=== PATIENT | female | born 1970 | race African-American/Black ===

== ENCOUNTER 2018-06-12 09:54 | Inpatient (IN) | payer OTHER ==
[2018-06-12 11:37] VITALS: BMI 19.8
--- NOTE | 2018-06-12 12:34 | HP ---
CIWA Score Nausea/Vomitin Muscle Tremors: 3 Anxiety: 3 Agitation: 3 Paroxysmal Sweats: 1-Minimal Palms Moist Orientation: 0-Oriented Tacttile Disturbances: 1-Very Mild Itch/Numbness Auditory Disturbances: 1-Very Mild Visual Disturbances: 0-None Headache: 2-Mild CIWA-Ar Total Score: 16 - Admission Criteria OASAS Guidelines: Admission for Medically Managed Detox: Requires at least one of the followin. CIWA greater than 12 2. Seizures within the past 24 hours 3. Delirium tremens within the past 24 hours 4. Hallucinations within the past 24 hours 5. Acute intervention needed for co occurring medical disorder 6. Acute intervention needed for co occurring psychiatric disorder 7. Severe withdrawal that cannot be handled at a lower level of care (continued vomiting, continued diarrhea, abnormal vital signs) requiring intravenous medication and/or fluids 8. Admission ROS S - [facility] Chief Complaint: i need help to stop drinking lcohol,cocaine,dependence,heroin abused,mmtp 150 mgs/day Allergies/Adverse Reactions: Allergies Allergy/AdvReac Type Severity Reaction Status Date / Time No Known Allergies Allergy Verified 06/12/18 11:19 History of Present Illness: this 47 years old femlae with alcohol and cocaine dependence,heroin abused,mmtp 150 mgs/day,last medicated today, had previous admission in detox and rehab before last treatment in rehab 08/15/15 to 09/04/15 [facility] re[facility] asthma on albuterol inhaler nicotine dependence 1/2 pack/day,would like patch and gum longest period of sobriety 5 years plan to go to rehab after detox - Ebola screening Have you traveled outside of the country in the last 21 days: No Have you had contact with anyone from an Ebola affected area: No Do you have a fever: No - Review of Systems Constitutional: Loss of Appetite, Malaise, Night Sweats, Changes in sleep, Weakness, Unintentional Wgt. Loss EENT: reports: Tearing, Nose Congestion Respiratory: reports: No Symptoms reported, Other (asthma) Cardiac: reports: No Symptoms Reported GI: reports: Diarrhea, Nausea, Abdominal cramping : reports: No Symptoms Reported Musculoskeletal: reports: Back Pain, Muscle Pain Integumentary: reports: Dryness Neuro: reports: Headache, Tremors Endocrine: reports: No Symptoms Reported Hematology: reports: No Symptoms Reported Psychiatric: reports: No Sypmtoms Reported, Judgement Intact, Mood/Affect Appropiate, Orientated x3, Anxious, other (ptsd) Other Systems: Reviewed and Negative Patient History - Patient Medical History Hx Anemia: Yes (no med) Hx Asthma: Yes (on albuterol inhaler) Hx Chronic Obstructive Pulmonary Disease (COPD): Yes Hx Cancer: No Hx Cardiac Disorders: No Hx Congestive Heart Failure: No Hx Hypertension: No Hx Hypercholesterolemia: No Hx Pacemaker: No HX Cerebrovascular Accident: No Hx Seizures: No Hx Dementia: No Hx Diabetes: No Hx Gastrointestinal Disorders: No Hx Liver Disease: No Hx Genitourinary Disorders: No Hx Sexually Transmitted Disorders: No Hx Renal Disease (ESRD): No Hx Thyroid Disease: No Hx Human Immunodeficiency Virus (HIV): No (02/25 negative) Hx Hepatitis C: No (2015 negative) Hx Depression: No Hx Suicide Attempt: No Hx Bipolar Disorder: Yes (gabapentin 300 mg po tid last 4 moths ago) Hx Schizophrenia: No Other Medical History: no suicidal,no homicidal,low back pain,scitica - Patient Surgical History Past Surgical History: Yes Hx Neurologic Surgery: No Hx Cataract Extraction: No Hx Cardiac Surgery: No Hx Lung Surgery: No Hx Breast Surgery: No Hx Breast Biopsy: No Hx Abdominal Surgery: No Hx Appendectomy: No Hx Cholecystectomy: No Hx Genitourinary Surgery: No Hx Section: Yes (1988 1993 2008) Hx Orthopedic Surgery: No Hx Hysterectomy: No Anesthesia Reaction: No - PPD History Previous Implant?: Yes Documented Results: Negative w/o proof Implanted On Prior [facility] Admission?: Yes Date: 06/11/15 Results: 0 MM PPD to be Administered?: Yes - Reproductive History Patient is a Female of Child Bearing Age (11 -55 yrs old): Yes Last Menstrual Period: 01/08/18 Patient : No - Smoking Cessation Smoking history: Current every day smoker Have you smoked in the past 12 months: Yes Aproximately how many cigarettes per day: 10 Hx Chewing Tobacco Use: No Initiated information on smoking cessation: Yes 'Breaking Loose' booklet given: 06/12/18 - Substance & Tx. History Hx Alcohol Use: Yes Hx Substance Use: Yes (cocaine,heroin) Substance Use Type: Alcohol Hx Substance Use Treatment: Yes ([facility] 08/15/15 to 08/25/15) - Substances abused Heroin Substance route: Inhalation Frequency: 3-6 times per week Amount used: 2 BAGS Age of first use: 16 Date of last use: 06/11/18 Alcohol Substance route: Oral Frequency: Daily Amount used: 1 SHOT BOTTLE OF BACARDI 1 pint Age of first use: 15 Date of last use: 06/11/18 Cocaine Substance route: Smoking Frequency: Daily Amount used: 4 BAGS Age of first use: 16 Date of last use: 06/11/18 Family Disease History - Family Disease History Family Disease History: Diabetes: Father (etoh/drugs), Heart Disease: Mother ( etoh/drugs), Other: Father, Mother Admission Physical Exam [facility] - Vital Signs Vital Signs: Vital Signs - 24 hr 06/12/18 06/12/18 11:22 11:45 Temperature 98.5 F 98.5 F Pulse Rate 64 64 Respiratory 20 20 Rate Blood Pressure 117/75 117/75 - Physical General Appearance: Yes: Moderate Distress, Tremorous, Irritable, Sweating, Anxious HEENTM: Yes: Normocephalic, Normal Voice, WAYNE, Pharynx Normal Respiratory: Yes: Lungs Clear, Normal Breath Sounds, No Respiratory Distress Neck: Yes: Within Normal Limits, Supple, Trachea in good position Breast: Yes: Breast Exam Deferred Cardiology: Yes: Within Normal Limits, Regular Rhythm, Regular Rate, S1, S2 Abdominal: Yes: Within Normal Limits, Normal Bowel Sounds, Non Tender, Soft Genitourinary: Yes: Within Normal Limits Back: Yes: Muscle Spasm Musculoskeletal: Yes: Back pain, Muscle Pain Extremities: Yes: Within Normal Limits, Normal Range of Motion, Tremors 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 NML intact, Fully Oriented, Alert, Motor Strength 5/5 Integumentary: Yes: Within Normal Limits, Dry Lymphatic: Yes: Within Normal Limits - Diagnostic (1) Alcohol dependence with uncomplicated withdrawal Current Visit: Yes Status: Acute (2) Cocaine dependence Current Visit: Yes Status: Acute (3) Heroin abuse Current Visit: Yes Status: Acute (4) Asthma Current Visit: No Status: Chronic Qualifiers: Asthma severity: mild intermittent Asthma complication type: uncomplicated (5) Methadone maintenance therapy patient Current Visit: No Status: Chronic (6) PTSD (post-traumatic stress disorder) Current Visit: No Status: Chronic (7) Bipolar disorder Current Visit: No Status: Suspected (8) Weight loss Current Visit: Yes Status: Acute (9) Low back pain with sciatica Current Visit: Yes Status: Acute Cleared for Admission [facility] - Detox or Rehab [facility] Level of Care: Medically Managed Detox Regimen/Protocol: Librium Breathalyzer - Breathalyzer Breathalyzer: 0 Urine Drug Screen - Test Device Lot number: [id number] Expiration date: 01/07/20 - Control Is test valid?: Yes - Results Drug screen NEGATIVE: No Urine drug screen results: LAURA-Cocaine, MET-Methamphetamine, FEN-Fentanyl, MOP- Opiates, MTD-Methadone Inpatient Rehab Admission - Rehab Decision to Admit Inpatient rehab admission?: No
[2018-06-12] MEDS ORDERED: ACETAMINOPHEN 325 MG TABLET (FP) PO PRN ×2 (12:47)
[2018-06-12] MEDS ORDERED: METHOCARBAMOL 500 MG TABLET PO PRN (12:47)
[2018-06-12] MEDS ORDERED: MAG HYDROX/AL HYDROX/SIMETH 30 ML UNIT-DOSE CUP PO PRN (12:47)
[2018-06-12] MEDS ORDERED: MENTHOL/PHENOL 1 EACH UD MM PRN (12:47)
[2018-06-12] MEDS ORDERED: MAGNESIUM HYDROX 2400MG/30ML ORAL SUSPENSION 30 ML CUP PO PRN (12:47)
[2018-06-12] MEDS ORDERED: IBUPROFEN 400 MG TABLET (FP) PO PRN (12:47)
[2018-06-12] MEDS ORDERED: hydrOXYzine PAMOATE 25 MG CAPSULE (FP) PO PRN (12:47)
[2018-06-12] MEDS ORDERED: NICOTINE POLACRILEX 2 MG GUM BUC PRN (12:47)
[2018-06-12] MEDS ORDERED: MAGNESIUM CITRATE 300 ML BOTTLE PO PRN (12:47)
[2018-06-12] MEDS ORDERED: ALBUTEROL SO4 8 GM HFA INHALER IH PRN (12:53)
[2018-06-12] MEDS ORDERED: COLLOIDAL OATMEAL 1 BAR EACH TP PRN (12:54)
[2018-06-12] MEDS: chlordiazePOXIDE HCL 25 MG CAPSULE PO PRN (13:27)
[2018-06-12] MEDS: NICOTINE 21 MG/24 HOURS TOPICAL PATCH TD SCH (14:12)
[2018-06-12] MEDS: LIDOCAINE 5% TOPICAL PATCH TP SCH (14:12)
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
[2018-06-12] MEDS: GABAPENTIN 300 MG CAPSULE (FP) PO SCH ×2 (15:28→23:01)
[2018-06-12] MEDS: chlordiazePOXIDE HCL 25 MG CAPSULE PO SCH ×2 (17:42→23:00)
[2018-06-12 19:00] LABS: HEMATOCRIT 42.5 % (32.4-45.2); HEMOGLOBIN 13.7 GM/dL (10.7-15.3); MCH 26.4 pg (25.7-33.7); MCHC 32.3 g/dl (32.0-36.0); MEAN CELL VOLUME 81.9 fl (80-96); MEAN PLT VOLUME 9.1 fl (7.5-11.1); PLATELET COUNT 99 K/MM3 (134-434); RBC 5.19 M/mm3 (3.60-5.2); RDW 14.9 % (11.6-15.6); WHITE BLOOD COUNT 3.1 K/mm3 (4.0-10.0)
[2018-06-12 19:19] LABS: ALBUMIN 3.6 g/dl (3.4-5.0); ALK PHOS 72 U/L (45-117); ANION GAP 3 MMOL/L (8-16); BILIRUBIN,TOTAL 0.6 mg/dL (0.2-1); BLOOD UREA NITROGEN 11 mg/dL (7-18); CHLORIDE 104 mmol/L (98-107); CO2 34 mmol/L (21-32); CREATININE 1.1 mg/dL (0.55-1.3); GLUCOSE,RANDOM 88 mg/dL (74-106); POTASSIUM 4.7 mmol/L (3.5-5.1); SGOT/AST 18 U/L (15-37); SGPT/ALT 17 U/L (13-61); SODIUM 140 mmol/L (136-145); TOT PROT 7.3 g/dl (6.4-8.2)
[2018-06-12] MEDS: LIDOCAINE PATCH REMOVAL MC SCH (22:48)
[2018-06-12] MEDS: MELATONIN 5 MG TABLETS PO PRN (23:00)
[2018-06-12] MEDS: hydrOXYzine PAMOATE 50 MG CAPSULE (FP) PO PRN (23:01)
[2018-06-13] MEDS ORDERED: METHADONE HCL 10 MG TABLET ONE (04:48)
[2018-06-13] MEDS ORDERED: METHADONE HCL 40 MG DISPERSABLE TABLET ONE (04:49)
[2018-06-13] MEDS: METHADONE 120 MG, METHADONE 30 MG PO SCH (05:18)
[2018-06-13] MEDS: GABAPENTIN 300 MG CAPSULE (FP) PO SCH ×3 (05:18→22:21)
[2018-06-13] MEDS: chlordiazePOXIDE HCL 25 MG CAPSULE PO SCH ×4 (05:18→22:21)
[2018-06-13] MEDS ORDERED: METHADONE HCL 10 MG TABLET PO SCH (06:00)
[2018-06-13] MEDS: PRENATAL VITAMINS W/ FOLIC ACID TABLET (FP) PO SCH (09:48)
[2018-06-13] MEDS: LIDOCAINE 5% TOPICAL PATCH TP SCH (09:48)
[2018-06-13] MEDS: NICOTINE 21 MG/24 HOURS TOPICAL PATCH TD SCH (09:48)
--- NOTE | 2018-06-13 11:30 | PN ---
[facility] CIWA - CIWA Score Nausea/Vomitin-No Nausea/No Vomiting Muscle Tremors: 3 Anxiety: 2 Agitation: 3 Paroxysmal Sweats: 3 Orientation: 0-Oriented Tacttile Disturbances: 0-None Auditory Disturbances: 0-None Visual Disturbances: 0-None Headache: 0-None Present CIWA-Ar Total Score: 11 S Progress Note (SOAP) Subjective: hot/cold sweats chills shakes bodyaches interrupted sleep Objective: 06/13/18 11:29 Vital Signs Temperature 98.1 F 06/13/18 09:13 Pulse Rate 69 06/13/18 09:13 Respiratory Rate 18 06/13/18 09:13 Blood Pressure 105/72 06/13/18 09:13 O2 Sat by Pulse Oximetry (%) Laboratory Tests 06/12/18 06/12/18 06/12/18 11:54 13:00 13:00 WBC 3.1 L RBC 5.19 Hgb 13.7 Hct 42.5 D MCV 81.9 MCH 26.4 D MCHC 32.3 RDW 14.9 D Plt Count 99 L D MPV 9.1 Sodium 140 Potassium 4.7 Chloride 104 Carbon Dioxide 34 H Anion Gap 3 L BUN 11 Creatinine 1.1 Creat Clearance w eGFR 53.01 Random Glucose 88 Calcium 9.0 Total Bilirubin 0.6 AST 18 ALT 17 Alkaline Phosphatase 72 Total Protein 7.3 Albumin 3.6 POC Urine HCG, Qual Negative aaox3 ambulating no acute distress Assessment: 06/13/18 11:29 withdrawal sx Plan: continue detox increase fluids
[2018-06-13] MEDS: THIAMINE HCL 100 MG TABLET (FP) PO SCH ×2 (22:21)
[2018-06-13] MEDS: BISMUTH SUBSALICYLATE 524 MG/30 ML UD PO PRN (22:23)
[2018-06-13] MEDS: SUVOREXANT 10 MG TABLET PO PRN (22:25)
[2018-06-13] MEDS: LIDOCAINE PATCH REMOVAL MC SCH (23:30)
[2018-06-14] MEDS: chlordiazePOXIDE HCL 25 MG CAPSULE PO PRN (03:26)
[2018-06-14] MEDS ORDERED: METHADONE HCL 10 MG TABLET ONE (04:55)
[2018-06-14] MEDS ORDERED: METHADONE HCL 40 MG DISPERSABLE TABLET ONE (04:56)
[2018-06-14] MEDS: METHADONE 120 MG, METHADONE 30 MG PO SCH (05:34)
[2018-06-14] MEDS: GABAPENTIN 300 MG CAPSULE (FP) PO SCH ×3 (05:35→22:29)
[2018-06-14] MEDS: chlordiazePOXIDE HCL 25 MG CAPSULE PO SCH ×2 (05:35→10:47)
--- NOTE | 2018-06-14 10:46 | PN ---
S CIWA - CIWA Score Nausea/Vomitin-No Nausea/No Vomiting Muscle Tremors: 3 Anxiety: 1-Mildly Anxious Agitation: 2 Paroxysmal Sweats: No Perspiration Orientation: 0-Oriented Tacttile Disturbances: 0-None Auditory Disturbances: 0-None Visual Disturbances: 0-None Headache: 0-None Present CIWA-Ar Total Score: 6 BHS Progress Note (SOAP) Subjective: i need my methadone time changed from 6am to 10am. sleepy groggy anxiety Objective: 06/14/18 10:44 Vital Signs Temperature 98.2 F 06/14/18 10:21 Pulse Rate 72 06/14/18 10:21 Respiratory Rate 16 06/14/18 10:21 Blood Pressure 108/57 L 06/14/18 10:21 O2 Sat by Pulse Oximetry (%) Laboratory Tests 06/12/18 06/12/18 06/12/18 11:54 13:00 13:00 WBC 3.1 L RBC 5.19 Hgb 13.7 Hct 42.5 D MCV 81.9 MCH 26.4 D MCHC 32.3 RDW 14.9 D Plt Count 99 L D MPV 9.1 Sodium 140 Potassium 4.7 Chloride 104 Carbon Dioxide 34 H Anion Gap 3 L BUN 11 Creatinine 1.1 Creat Clearance w eGFR 53.01 Random Glucose 88 Calcium 9.0 Total Bilirubin 0.6 AST 18 ALT 17 Alkaline Phosphatase 72 Total Protein 7.3 Albumin 3.6 POC Urine HCG, Qual Negative RPR Titer 06/12/18 13:00 WBC RBC Hgb Hct MCV MCH MCHC RDW Plt Count MPV Sodium Potassium Chloride Carbon Dioxide Anion Gap BUN Creatinine Creat Clearance w eGFR Random Glucose Calcium Total Bilirubin AST ALT Alkaline Phosphatase Total Protein Albumin POC Urine HCG, Qual RPR Titer Nonreactive aaox3 ambulating no acute distress Assessment: 06/14/18 10:44 mild withdrawal sx Plan: continue detox pt methadone maintenance time is switched from 6am to 10am for pt to receive as per pt request increase fluids
[2018-06-14] MEDS: PRENATAL VITAMINS W/ FOLIC ACID TABLET (FP) PO SCH (10:47)
[2018-06-14] MEDS: NICOTINE 21 MG/24 HOURS TOPICAL PATCH TD SCH (10:47)
[2018-06-14] MEDS: LIDOCAINE 5% TOPICAL PATCH TP SCH (10:48)
[2018-06-14] MEDS ORDERED: chlordiazePOXIDE HCL 10 MG CAPSULE PO PRN (17:00)
[2018-06-14] MEDS: chlordiazePOXIDE HCL 10 MG CAPSULE PO SCH ×2 (17:22→22:29)
[2018-06-14] MEDS: THIAMINE HCL 100 MG TABLET (FP) PO SCH (22:29)
[2018-06-14] MEDS: MELATONIN 5 MG TABLETS PO PRN (22:30)
[2018-06-14] MEDS: SUVOREXANT 10 MG TABLET PO PRN (22:31)
[2018-06-14] MEDS: LIDOCAINE PATCH REMOVAL MC SCH (22:31)
[2018-06-15] MEDS: SUVOREXANT 10 MG TABLET PO PRN (02:29)
[2018-06-15] MEDS: GABAPENTIN 300 MG CAPSULE (FP) PO SCH ×3 (06:10→22:30)
[2018-06-15] MEDS: chlordiazePOXIDE HCL 10 MG CAPSULE PO SCH ×4 (06:10→17:54)
[2018-06-15] MEDS ORDERED: METHADONE HCL 10 MG TABLET ONE (09:36)
[2018-06-15] MEDS ORDERED: METHADONE HCL 40 MG DISPERSABLE TABLET ONE (09:37)
--- NOTE | 2018-06-15 09:59 | PN ---
S CIWA - CIWA Score Nausea/Vomitin-No Nausea/No Vomiting Muscle Tremors: 3 Anxiety: 1-Mildly Anxious Agitation: 1-Slight > Activity Paroxysmal Sweats: No Perspiration Orientation: 0-Oriented Tacttile Disturbances: 0-None Auditory Disturbances: 0-None Visual Disturbances: 0-None Headache: 0-None Present CIWA-Ar Total Score: 5 BHS Progress Note (SOAP) Subjective: agitation mild sweats Objective: 06/15/18 09:58 Vital Signs Temperature 98.8 F 06/15/18 09:26 Pulse Rate 101 H 06/15/18 09:26 Respiratory Rate 18 06/15/18 09:26 Blood Pressure 124/79 06/15/18 09:26 O2 Sat by Pulse Oximetry (%) aaox3 ambulating no acute distress Assessment: 06/15/18 09:58 mild withdrawal Plan: continue detox increase fluids d/c in am
[2018-06-15] MEDS ORDERED: METHADONE 120 MG, METHADONE 30 MG PO SCH (10:00)
[2018-06-15] MEDS: NICOTINE 21 MG/24 HOURS TOPICAL PATCH TD SCH (10:02)
[2018-06-15] MEDS: LIDOCAINE 5% TOPICAL PATCH TP SCH (10:03)
[2018-06-15] MEDS: PRENATAL VITAMINS W/ FOLIC ACID TABLET (FP) PO SCH (10:03)
[2018-06-15] MEDS: hydrOXYzine PAMOATE 50 MG CAPSULE (FP) PO PRN (20:01)
[2018-06-15] MEDS: LIDOCAINE PATCH REMOVAL MC SCH (22:30)
[2018-06-15] MEDS: THIAMINE HCL 100 MG TABLET (FP) PO SCH (22:30)
[2018-06-15] MEDS: BISMUTH SUBSALICYLATE 524 MG/30 ML UD PO PRN (22:36)
[2018-06-16] MEDS: hydrOXYzine PAMOATE 50 MG CAPSULE (FP) PO PRN (03:13)
[2018-06-16] MEDS: chlordiazePOXIDE HCL 10 MG CAPSULE PO SCH (05:12)
[2018-06-16] MEDS: GABAPENTIN 300 MG CAPSULE (FP) PO SCH (05:12)
[2018-06-16] MEDS ORDERED: METHADONE HCL 10 MG TABLET ONE (06:24)
[2018-06-16] MEDS ORDERED: METHADONE HCL 40 MG DISPERSABLE TABLET ONE (06:24)
[2018-06-16] MEDS ORDERED: METHADONE 120 MG, METHADONE 30 MG PO ONE (07:00)
--- NOTE | 2018-06-16 09:06 | DS ---
[facility] Detox Discharge Summary Admission Date: 06/12/18 Discharge Date: 06/16/18 - History Present History: Alcohol Dependence, Cannabis Dependence, Cocaine Dependence, MMTP - Physical Exam Results Vital Signs: Vital Signs Temperature 99.0 F 06/16/18 06:26 Pulse Rate 77 06/16/18 06:26 Respiratory Rate 16 06/16/18 06:26 Blood Pressure 99/60 06/16/18 06:26 O2 Sat by Pulse Oximetry (%) - Treatment Hospital Course: Detox Protocol Followed, Detoxed Safely, Responded well, Discharged Condition Good (r), Rehab Referral Accepted - Medication Discharge Medications: Ambulatory Orders Albuterol Sulfate [Proair Respiclick] 2 inh IH Q4H PRN 06/09/15 Doxepin HCl [Sinequan -] 100 mg PO HS #60 capsule 09/03/15 Escitalopram Oxalate [Lexapro -] 20 mg PO DAILY #30 tablet 09/03/15 Gabapentin [Neurontin -] 600 mg PO TID #90 capsule 09/03/15 Methadone [Dolophine -] 150 mg PO DAILY 06/12/18 - AMA Did Patient Leave Against Medical Advice: No (referred to [facility])
--- NOTE | 2018-06-16 10:00 | PN ---
[facility] Progress Note Note: Patient is discharged today. Script for 30 days supply of Gabapentin 300mg po TID is electronically transmitted to [facility] at [address] [place] [id number]
[2018-06-16 10:02] VITALS: BP 117/69; PULSE 81; TEMP 98.6
[2018-06-16] MEDS: LIDOCAINE 5% TOPICAL PATCH TP SCH (10:47)
[2018-06-16] MEDS: NICOTINE 21 MG/24 HOURS TOPICAL PATCH TD SCH (10:48)
[2018-06-16] MEDS: PRENATAL VITAMINS W/ FOLIC ACID TABLET (FP) PO SCH (10:48)
== END 2018-06-16 12:15 | disposition home or self-care (01) | DRG 773 ==
LOC: YASAS 09:54 → Y6N 12:57
PROVIDERS: ADMIT Surgery; ATTEND Surgery
PROC: HZ2ZZZZ Detoxification Services for Substance Abuse Treatment (ICD-10-PCS; principal; 2018-06-12)
DX: F10.230 Alcohol dependence with withdrawal, uncomplicated (principal); F11.20 Opioid dependence, uncomplicated; F14.20 Cocaine dependence, uncomplicated; F17.210 Nicotine dependence, cigarettes, uncomplicated; F32.9 Major depressive disorder, single episode, unspecified; F43.10 Post-traumatic stress disorder, unspecified; F19.24 Other psychoactive substance dependence with psychoactive substance-induced mood disorder; F19.282 Other psychoactive substance dependence with psychoactive substance-induced sleep disorder; J45.20 Mild intermittent asthma, uncomplicated; M54.40 Lumbago with sciatica, unspecified side; R63.4 Abnormal weight loss
CPT/HCPCS: 36415; 80053; 81025; 85027; 86593